=== PATIENT | female | born 1985 | race Caucasian/White ===

== ENCOUNTER 2017-09-24 17:13 | Emergency (ER) | payer OTHER ==
[~2017-09-24] VITALS: Ht 162.6 cm; Wt 80.5 kg
[2017-09-24 17:22] VITALS: TEMP 36.7; Ht 162.6 cm; Wt 80.5 kg
[2017-09-24] MEDS ORDERED: OPTIRAY 320 IV PRN (18:00)
[2017-09-24] MEDS ORDERED: SODIUM CHLORIDE 0.9% 1000ML 1,000 ML IV STA (18:17)
[2017-09-24 18:21] LABS: BASO % 0.1 %; BASO ABS # 0.01 K/uL (0-0.2); EOS % 0.7 %; EOS ABS # 0.05 K/uL (0-0.5); HEMATOCRIT 36.3 % (37-47); HEMOGLOBIN 12.3 g/dL (12.0-16.0); IG# 0.01 K/uL (0.00-0.02); LYMPH % 34.7 %; LYMPH ABS # 2.46 K/uL (1.2-3.4); MEAN CELL VOLUME 88.5 fL (80-100); MEAN CORPUSCULAR HGB CONC 33.9 g/dl (32-36); MEAN PLATELET VOLUME 9.9 fL (7.4-10.4); MONO % 4.9 %; MONO ABS # 0.35 K/uL (0.11-0.59); NEUT % 59.5 %; NEUT ABS # 4.21 K/uL (1.4-6.5); PLATELET COUNT 224 K/uL (130-400); RED CELL DISTRIBUTION WIDTH SD 41.4 fL (36.4-46.3); WHITE BLOOD COUNT 7.09 K/uL (4.8-10.8)
[2017-09-24] MEDS ORDERED: IBUP-1277 PO (18:25)
[2017-09-24 18:44] LABS: ALBUMIN 3.7 gm/dl (3.4-5.0); ALT/SGPT 20 U/L (12-78); BLOOD UREA NITROGEN 11 mg/dl (7-18); CALCIUM 9.2 mg/dl (8.5-10.1); CARBON DIOXIDE 24 mmol/L (21-32); CREATININE 0.52 mg/dl (0.60-1.20); GLUCOSE 69 mg/dl (70-99); LIPASE 175 U/L (73-393); POTASSIUM 3.4 mmol/L (3.5-5.1); SODIUM 139 mmol/L (136-145)
[2017-09-24 18:55] LABS: ALKALINE PHOSPHATASE 59 U/L (45-117); AST/SGOT 16 U/L (15-37); TOTAL PROTEIN 7.2 gm/dl (6.4-8.2)
--- NOTE | 2017-09-24 19:22 | DIAGNOSTIC IMAGING REPORT ---
CHEST CTA for AORTIC DISSECTION CT DOSE: 759.05 mGy.cm HISTORY: Pulsatile abdominal mass. Assess for aortic dissection. TECHNIQUE: Multiaxial CT images of the chest were performed both before and after the intravenous administration of contrast to evaluate the aorta. Maximal intensity projection images were also obtained. A dose lowering technique was utilized adhering to the principles of ALARA. COMPARISON STUDY: None. FINDINGS: Normal caliber thoracic aorta with no evidence for dissection. The central pulmonary arteries are patent. No mediastinal or hilar lymphadenopathy. Surgical clips within the left axilla. No pleural or pericardial effusions. No fractures within the visualized osseous structures. No pneumothorax. The lungs are clear. IMPRESSION: Normal thoracic aorta. Electronically signed by: Syed Rogers M.D. 09/24/2017 7:21 PM Dictated Date/Time: 09/24/2017 7:16 PM
--- NOTE | 2017-09-24 19:31 | DIAGNOSTIC IMAGING REPORT ---
Abdomen and pelvis CTA CT DOSE: HISTORY: Pulsatile abdominal mass. Assess for aneurysm. TECHNIQUE: Multiaxial CT images of the abdomen and pelvis were performed both before and after the intravenous administration of contrast to evaluate the aorta. Maximal intensity projection images were also obtained. A dose lowering technique was utilized adhering to the principles of ALARA. COMPARISON STUDY: None. FINDINGS: Normal caliber abdominal aorta with no evidence for dissection. The iliac arteries are widely patent. The renal, celiac, and mesenteric arteries are also patent. Bilateral L5 spondylolysis. Mild subcutaneous scarring at the umbilicus. The liver, gallbladder, pancreas, spleen, adrenal glands, and kidneys are unremarkable. No retroperitoneal lymphadenopathy. The bladder, uterus, bilateral adnexa are unremarkable. No bowel wall thickening or obstruction. Normal appendix. Prominent mesenteric lymph nodes. Dominant lymph node measures 11 x 8 mm. IMPRESSION: 1. Normal abdominal aorta. 2. No bowel wall thickening or obstruction. 3. Prominent mesenteric lymph nodes. This is nonspecific but could be due to a mild mesenteric adenitis. Electronically signed by: Syed Rogers M.D. 09/24/2017 7:29 PM Dictated Date/Time: 09/24/2017 7:21 PM
[2017-09-24 19:36] VITALS: BP 102/68; PULSE 58; O2SAT 100
--- NOTE | 2017-09-24 23:25 | EMERGENCY ROOM VISIT NOTE ---
History Report prepared by Herb: Anu Bella Under the Supervision of: Dr. Giovanny Luo M.D. First contact with patient: 17:25 Chief Complaint: ABDOMINAL PAIN Stated Complaint: PULSATILE ABDOMINAL MASS- REFERRED History of Present Illness The patient is a 32 year old female who presents to the Emergency Room with complaints of constant abdominal pain starting 4 months ago. She was sent to the ED today for a CT over concerns that she was tender in her abdomen. She describes the pain as a pulsating feeling. This pulsating is always present and seems to be getting worse. She reports intermittent chest tightness and heart fluttering. She has had intermittent diarrhea for 3-4 weeks. She will have watery stool for a day which then resolves. She has not had any black or bloody stools. She denies any fever or vomiting. Her feet are not turning blue. They are numb at times which she attributes to her pinched nerve in her lower back. She went to the [place] ER 5 days ago. They were not concerned about the abdominal pain. They did a CT of her back as she was having back pain. She has a history of pinched nerve in her back. She denies any history of problems with her aorta, thyroid disease, diabetes, or hypertension. She is adopted and is unsure if she has a family history of Crohn's disease. She does know that she has a family history of diabetes and breast cancer in her biological parents. Source of History: patient Onset: 4 months ago Position: abdomen Quality: other (pulsating) Timing: constant Associated Symptoms: + chest pain, + diarrhea, No fevers, No vomiting, No melena, No hematochezia Note: Pt reports heart fluttering. Review of Systems See HPI for pertinent positives & negatives. A total of 10 systems reviewed and were otherwise negative. Past Medical & Surgical No history of thyroid disease, diabetes, hypertension. Family History Cancer Diabetes mellitus Social History Smoking Status: Never Smoker Marital Status: Occupation Status: employed Current/Historical Medications Scheduled Ibuprofen (Advil), 400 MG PO UD Allergies Coded Allergies: No Known Allergies (Unverified , 09/24/17) Physical Exam Vital Signs Date Time Temp Pulse Resp B/P (MAP) Pulse Ox O2 Delivery O2 Flow Rate FiO2 09/24/17 19:36 58 14 102/68 100 Room Air 09/24/17 18:04 69 09/24/17 17:22 36.7 71 16 113/72 98 Room Air Physical Exam Constitutional: Vital signs reviewed. Eyes: Pupils are equal round reactive to light. Conjunctiva are noninjected. ENT: Pharynx is clear without erythema or exudate. Mucous membranes are moist. Neck supple without meningeal signs. Respiratory: Clear to auscultation bilaterally. Breath sounds are equal bilaterally. Cardiovascular: Regular rate and rhythm. No rubs or gallops. GI: Soft, nondistended. Diffusely tender to the abdomen, mostly in the epigastric and RLQ region. Aortic pulsations are palpable. Bowel sounds are present. Musculoskeletal: No peripheral edema. No lower extremity tenderness. Integumentary: No cyanosis. Neurological: The patient is awake and alert. No focal deficits. Psychiatric: Normal affect. Medical Decision & Procedures ER Provider Diagnostic Interpretation: Radiology results as stated below per my review and the radiologist's interpretation: Abdomen and pelvis CTA CT DOSE: HISTORY: Pulsatile abdominal mass. Assess for aneurysm. TECHNIQUE: Multiaxial CT images of the abdomen and pelvis were performed both before and after the intravenous administration of contrast to evaluate the aorta. Maximal intensity projection images were also obtained. A dose lowering technique was utilized adhering to the principles of ALARA. COMPARISON STUDY: None. FINDINGS: Normal caliber abdominal aorta with no evidence for dissection. The iliac arteries are widely patent. The renal, celiac, and mesenteric arteries are also patent. Bilateral L5 spondylolysis. Mild subcutaneous scarring at the umbilicus. The liver, gallbladder, pancreas, spleen, adrenal glands, and kidneys are unremarkable. No retroperitoneal lymphadenopathy. The bladder, uterus, bilateral adnexa are unremarkable. No bowel wall thickening or obstruction. Normal appendix. Prominent mesenteric lymph nodes. Dominant lymph node measures 11 x 8 mm. IMPRESSION: 1. Normal abdominal aorta. 2. No bowel wall thickening or obstruction. 3. Prominent mesenteric lymph nodes. This is nonspecific but could be due to a mild mesenteric adenitis. Electronically signed by: Syed Rogers M.D. 09/24/2017 7:29 PM Dictated Date/Time: 09/24/2017 7:21 PM CHEST CTA for AORTIC DISSECTION CT DOSE: 759.05 mGy.cm HISTORY: Pulsatile abdominal mass. Assess for aortic dissection. TECHNIQUE: Multiaxial CT images of the chest were performed both before and after the intravenous administration of contrast to evaluate the aorta. Maximal intensity projection images were also obtained. A dose lowering technique was utilized adhering to the principles of ALARA. COMPARISON STUDY: None. FINDINGS: Normal caliber thoracic aorta with no evidence for dissection. The central pulmonary arteries are patent. No mediastinal or hilar lymphadenopathy. Surgical clips within the left axilla. No pleural or pericardial effusions. No fractures within the visualized osseous structures. No pneumothorax. The lungs are clear. IMPRESSION: Normal thoracic aorta. Electronically signed by: Syed Rogers M.D. 09/24/2017 7:21 PM Dictated Date/Time: 09/24/2017 7:16 PM Laboratory Results 09/24/17 18:01 Red Blood Count 4.10, Mean Corpuscular Volume 88.5, Mean Corpuscular Hemoglobin 30.0, Mean Corpuscular Hemoglobin Concent 33.9, Mean Platelet Volume 9.9, Neutrophils (%) (Auto) 59.5, Lymphocytes (%) (Auto) 34.7, Monocytes (%) (Auto) 4.9, Eosinophils (%) (Auto) 0.7, Basophils (%) (Auto) 0.1, Neutrophils # (Auto) 4.21, Lymphocytes # (Auto) 2.46, Monocytes # (Auto) 0.35, Eosinophils # (Auto) 0.05, Basophils # (Auto) 0.01 09/24/17 18:01 Test 09/24/17 18:00 09/24/17 18:01 Urine Color YELLOW Urine Appearance CLEAR (CLEAR) Urine pH 5.5 (4.5-7.5) Urine Specific [place] 1.029 (1.000-1.030) Urine Protein NEG (NEG) Urine Glucose (UA) NEG (NEG) Urine Ketones 4+ (NEG) Urine Occult Blood 2+ (NEG) Urine Nitrite NEG (NEG) Urine Bilirubin NEG (NEG) Urine Urobilinogen NEG (NEG) Urine Leukocyte Esterase NEG (NEG) Urine WBC (Auto) 1-5 /hpf (0-5) Urine RBC (Auto) 5-10 /hpf (0-4) Urine Hyaline Casts (Auto) 1-5 /lpf (0-5) Urine Epithelial Cells (Auto) >30 /lpf (0-5) Urine Bacteria (Auto) NEG (NEG) White Blood Count 7.09 K/uL (4.8-10.8) Red Blood Count 4.10 M/uL (4.2-5.4) Hemoglobin 12.3 g/dL (12.0-16.0) Hematocrit 36.3 % (37-47) Mean Corpuscular Volume 88.5 fL (80-100) Mean Corpuscular Hemoglobin 30.0 pg (25-34) Mean Corpuscular Hemoglobin Concent 33.9 g/dl (32-36) Platelet Count 224 K/uL (130-400) Mean Platelet Volume 9.9 fL (7.4-10.4) Neutrophils (%) (Auto) 59.5 % Lymphocytes (%) (Auto) 34.7 % Monocytes (%) (Auto) 4.9 % Eosinophils (%) (Auto) 0.7 % Basophils (%) (Auto) 0.1 % Neutrophils # (Auto) 4.21 K/uL (1.4-6.5) Lymphocytes # (Auto) 2.46 K/uL (1.2-3.4) Monocytes # (Auto) 0.35 K/uL (0.11-0.59) Eosinophils # (Auto) 0.05 K/uL (0-0.5) Basophils # (Auto) 0.01 K/uL (0-0.2) RDW Standard Deviation 41.4 fL (36.4-46.3) RDW Coefficient of Variation 13.0 % (11.5-14.5) Immature Granulocyte % (Auto) 0.1 % Immature Granulocyte # (Auto) 0.01 K/uL (0.00-0.02) Anion Gap 10.0 mmol/L (3-11) Est Creatinine Clear Calc Drug Dose 162.4 ml/min Estimated GFR () 148.6 Estimated GFR (Non- 128.2 BUN/Creatinine Ratio 21.7 (10-20) Calcium Level 9.2 mg/dl (8.5-10.1) Total Bilirubin 0.4 mg/dl (0.2-1) Direct Bilirubin 0.1 mg/dl (0-0.2) Aspartate Amino Transf (AST/SGOT) 16 U/L (15-37) Alanine Aminotransferase (ALT/SGPT) 20 U/L (12-78) Alkaline Phosphatase 59 U/L (45-117) Troponin I < 0.015 ng/ml (0-0.045) Total Protein 7.2 gm/dl (6.4-8.2) Albumin 3.7 gm/dl (3.4-5.0) Lipase 175 U/L (73-393) Thyroid Stimulating Hormone (TSH) 3.700 uIu/ml (0.300-4.500) Free Thyroxine 1.23 ng/dl (0.80-1.60) Laboratory results as reviewed by me. Medications Administered Medications (Trade) Dose Ordered Sig/[place] Route Start Time Stop Time Status Last Admin Dose Admin Sodium Chloride 1,000 ml @ 999 mls/hr Q1H1M STAT IV 09/24/17 18:17 09/24/17 19:17 DC 09/24/17 18:34 999 MLS/HR ECG Indication: palpitations Rate (beats per minute): 64 Rhythm: normal sinus Findings: no acute ischemic change, no ectopy Change: Patient's electrocardiogram per my interpretation. ED Course 1730: The patient was evaluated in room C11B. A complete history and physical exam was performed. 1756: I reevaluated the patient. I spoke to her about her results from [place]. She has not had a hysterectomy. She has had a tubal ligation with normal periods. 1816: NSS 1000 ml @ 999 mls/hr IV. 1950: Upon reevaluation, the patient was resting comfortably. I discussed carlos alberto's findings with her. She verbalized agreement of the treatment plan. She was discharged home. Medical Decision This is a 32-year-old female presents with abdominal pain. Differential diagnosis includes inflammatory bowel disease, irritable bowel syndrome, mass, aortic aneurysm, pancreatitis. I did perform a limited focused review of portions of the patient's old chart on the electronic medical record. The patient has had no recent pertinent visits to this hospital. I did evaluate the patient as noted above. The patient is presenting with abdominal pain. She was sent here by her doctor for CT scanning. She has had the pain for 4 months. IV access was established. The patient was placed on a continuous monitoring engineer. I did order and personally review the patient's urinalysis as described above. I did treat her with IV fluids with normal saline. I did order and review the patient's blood work as noted in the electronic medical record. I did order a CT angiogram of the chest, abdomen and pelvis. I did review the images myself as well as the radiology report as described above. There is no evidence of aortic aneurysm or dissection. No acute findings were noted except for some mesenteric lymphadenopathy. I did discuss the test results with the patient. I did recommend she follow closely with her doctor for further evaluation and further workup of the lymphadenopathy. She was discharged in good condition. Medication Reconcilliation Current Medication List: was personally reviewed by me Blood Pressure Screening Patient's blood pressure: Normal blood pressure Blood pressure disposition: Did not require urgent referral Impression Primary Impression: Upper abdominal pain Additional Impression: Mesenteric lymphadenopathy Scribe Attestation The scribe's documentation has been prepared under my direct and personally reviewed by me in its entirety. I confirm that the note above accurately reflects all work, treatment, procedures, and medical decision making performed by me. Departure Information Dispostion Home / Self-Care Referrals Ramiro Tyson M.D. (PCP) Forms HOME CARE DOCUMENTATION FORM, IMPORTANT VISIT INFORMATION Patient Instructions ED Abdominal Pain Unkn Cause, My [facility] Additional Instructions You have been examined and treated today on an emergency basis only. This is not a substitute for, or an effort to provide, complete comprehensive medical care. It is impossible to recognize and treat all injuries or illnesses in a single emergency department visit. It is therefore important that you follow up closely with your physician. Call as soon as possible for an appointment. Talk to your doctor about your CAT scan findings. Return for worsening symptoms or if you develop fever, vomiting, black or tarry stools or any other concerning symptoms. Problem Qualifiers
== END 2017-09-24 20:00 | disposition home or self-care (01) ==
LOC: C.EDB 17:16 → C.EDC 20:00
DX: R10.9 Unspecified abdominal pain (principal); R59.0 Localized enlarged lymph nodes; Z83.3 Family history of diabetes mellitus; Z80.9 Family history of malignant neoplasm, unspecified; Z98.51 Tubal ligation status

== ENCOUNTER → 2017-10-15 | Outpatient (CLI) | payer OTHER ==
[~2017-10-15] MED LIST: IBUP-1277 PO
[2017-10-15 13:17] LABS: HEMATOCRIT 37.7 % (37-47); HEMOGLOBIN 12.9 g/dL (12.0-16.0)
== END | disposition home or self-care (01) ==
LOC: C.LABMFLN 09:56
PROVIDERS: ATTEND Family Medicine
DX: R10.9 Unspecified abdominal pain (principal); K52.9 Noninfective gastroenteritis and colitis, unspecified; D64.9 Anemia, unspecified